=== PATIENT | male | born 1940 | race Hispanic/Latino ===

== ENCOUNTER 2020-05-25 10:21 | Inpatient (IN) | payer MEDICARE, OTHER ==
[~2020-05-25] VITALS: Ht 175.3 cm; Wt 79.4 kg
[2020-05-25] MEDS ORDERED: PIPER-TAZ 3.375 GM 50 ML IV STA (11:10)
[2020-05-25] MEDS ORDERED: SODIUM CHLORIDE 0.9% 1000ML 1,000 ML IV STA (11:10)
[2020-05-25 11:48] LABS: BASOPHILS % 0.3 % (0.0-1.0); EOSINOPHILS # (AUTO) 0.3 (0.0-0.4); EOSINOPHILS % 2.1 % (0.0-6.0); HEMATOCRIT 35.5 % (38.2-49.6); HEMOGLOBIN 11.1 g/dL (14.0-18.0); LYMPHOCYTES # (AUTO) 1.1 (1.0-3.2); MEAN CORPUSCULAR HEMOGLOBIN 27.1 pg (28-32); MEAN CORPUSCULAR HGB CONC 31.3 g/dL (31-35); MEAN CORPUSCULAR VOLUME 86.8 fL (81-99); MONOCYTES # (AUTO) 0.9 (0.2-0.8); MONOCYTES % 7.2 % (4.4-11.3); NEUTROPHILS # (AUTO) 9.8 (2.1-6.9); PLATELET COUNT 293 x10e3/uL (140-360); RED BLOOD COUNT 4.09 x10e6/uL (4.3-5.7); RED CELL DISTRIBUTION WIDTH 16.9 % (11.7-14.4)
--- NOTE | 2020-05-25 11:49 | Emergency Department Note ---
Past Medical/Family History Physician Review I have reviewed the patient's past medical and family history. Any updates have been documented here. Past Medical History Recent Fever: No Clinical Suspicion of Infectio: No New/Unexplained Change in Ment: No Family History Family history of heart diseas: No Review of Systems Review of Systems Constitutional: Reports no symptoms EENTM: Reports no symptoms Cardiovascular: Reports no symptoms Respiratory: Reports no symptoms Gastrointestinal: Reports no symptoms Genitourinary: Reports as per HPI, Reports other (Birmingham catheter) Musculoskeletal: Reports no symptoms Integumentary: Reports no symptoms Neurological: Reports no symptoms Psychological: Reports no symptoms Endocrine: Reports no symptoms Hematological/Lymphatic: Reports no symptoms Physical Exam Related Data Allergies: Coded Allergies: No Known Allergies (Unverified , 05/25/20) Triage Vital Signs Vital Signs Date Time Temp Pulse Resp B/P (MAP) Pulse Ox O2 Delivery O2 Flow Rate FiO2 05/25/20 10:29 98.7 85 20 141/84 95 Room Air Vital signs reviewed: Yes Physical Exam CONSTITUTIONAL Constitutional: Present well-developed, Present cachectic, Present ill appearin g HENT HENT: Present normocephalic, Present atraumatic, Present oropharynx clear/moist, Present nose normal HENT L/R: Present left ext ear normal, Present right ext ear normal EYES Eyes: Reports PERRL, Reports conjunctivae normal NECK Neck: Present ROM normal PULMONARY Pulmonary: Present effort normal, Present breath sounds normal CARDIOVASCULAR Cardiovascular: Present regular rhythm, Present heart sounds normal, Present normal rate GASTROINTESTINAL Abdominal: Present soft, Present nontender, Present bowel sounds normal GENITOURINARY Genitourinary: Present other (marked hypospadias Birmingham catheter insertion site); Absent penis normal SKIN Skin: Present warm, Present dry MUSCULOSKELETAL Musculoskeletal: Present other (contracted extremities) NEUROLOGICAL Neurological: Present alert PSYCHOLOGICAL Psychological: Present mood/affect normal, Present judgement normal Results Laboratory Result Diagram: 05/26/20 0503 05/26/20 0503 Lab results reviewed: Yes Assessment & Plan Medical Decision Making MDM 79-year-old male arrives to ED with a chronic indwelling Birmingham resulting hypospadias. Patient required hospital admission with revision to possible suprapubic catheter. Assessment & Plan Final Impression: (1) UTI (urinary tract infection) (2) Hypospadias Depart Disposition: ADMITTED Last Vital Signs Date Time Temp Pulse Resp B/P (MAP) Pulse Ox O2 Delivery O2 Flow Rate FiO2 05/25/20 10:29 98.7 85 20 141/84 95 Room Air Home Meds Reported Medications Acetaminophen With Codeine (TYLENOL WITH CODEINE #3 TABLET) 1 Each Tablet, 300 MG PO Q6H PRN for Mild Pain (1-3) or Fever>100.8, TAB 05/25/20 Trazodone Hcl (TRAZODONE HCL) 50 Mg Tablet, 50 MG PO HS, #30 TAB 05/25/20 Quetiapine Fumarate (QUETIAPINE FUMARATE) 25 Mg Tablet, MG PEG DAILY 05/25/20 Omeprazole (OMEPRAZOLE) 40 Mg Capsule.dr, 10 MG PEG BID 05/25/20 Levetiracetam (LEVETIRACETAM) 500 Mg Tablet, 1000 MG PEG BID 05/25/20 Finasteride (FINASTERIDE) 5 Mg Tablet, 5 MG PO DAILY, #30 TAB 05/25/20 Docusate Sodium (DOCUSATE SODIUM) 100 Mg Capsule, 100 MG PO BID PRN for CONSTIPATION, CAP 05/25/20 Benztropine Mesylate (BENZTROPINE MESYLATE) 1 Mg Tablet, 1 MG PEG BID 05/25/20 Aspirin (ASPIR 81) 81 Mg Tablet.dr, 81 MG PEG DAILY 05/25/20 Albuterol Sulf (ALBUTEROL SULFATE) 4 Mg Tab 05/25/20 Acetaminophen (ACETAMINOPHEN) 650 Mg Supp, 650 MG RC Q12H PRN for Mild Pain (1- 3) or Fever>100.8, SUPP 05/25/20 HISTORY & PHYSICAL HISTORY OF PRESENT ILLNESS HISTORY OF PRESENT ILLNESS This is a 79 year old male arrives to the ED with Birmingham catheter concerns, patient unable to provide history. HISTORY OF PAST ILLNESS PAST MEDICAL HISTORY: YES: CARDIOVASCULAR ACCIDENT, DEPRESSION, HIGH BLOOD PRESSURE MEDICATIONS MEDICATIONS Nurse's notes REVIEW OF SYSTEMS GENERAL: No: FEVER SKIN: YES: RASH COLTON BENITEZ DO May 25, 2020 11:49
[2020-05-25 12:06] LABS: BILIRUBIN,URINE NEGATIVE (NEGATIVE); CLARITY,URINE CLOUDY (CLEAR); COLOR,URINE YELLOW (YELLOW); KETONES,URINE NEGATIVE (NEGATIVE); LEUKOCYTE ESTERASE ,URINE LARGE (NEGATIVE); NITRITE,URINE NEGATIVE (NEGATIVE); PROTEIN,URINE DIPSTICK 1+ (NEGATIVE)
[2020-05-25 12:07] LABS: URINE UROBILINOGEN 1 mg/dL (0.2 - 1)
[2020-05-25 12:08] LABS: ALANINE AMINOTRANSFERASE 15 IU/L (0-55); ALBUMIN/GLOBULIN RATIO 0.6 (0.8-2.0); ALKALINE PHOSPHATASE 67 IU/L (40-150); ANION GAP 10.9 mmol/L (8-16); BLOOD UREA NITROGEN 18 mg/dL (7-26); BUN/CREATININE RATIO 20 (6-25); CALCIUM 8.8 mg/dL (8.4-10.2); CARBON DIOXIDE 27 mmol/L (22-29); CHLORIDE 103 mmol/L (98-107); CREATININE, SERUM 0.89 mg/dL (0.72-1.25); EST GLOMERULAR FILTRATION RATE > 60 ML/MIN (60-); GLUCOSE 102 mg/dL (74-118); POTASSIUM 3.9 mmol/L (3.5-5.1); SODIUM 137 mmol/L (136-145)
[2020-05-25 12:13] LABS: BACTERIA,URINE MANY /HPF; EPITHELIAL CELLS,URINE FEW /LPF; TRIPLE PHOSPHATE CRYSTAL,UR MODERATE (FEW); WBC,URINE (MAN) >50 /HPF (0-5)
[2020-05-25 13:56] VITALS: BP 131/77
[2020-05-25 14:03] VITALS: BP 131/77
--- NOTE | 2020-05-25 14:21 | NUR ---
patient received from ER via stretcher. see admit assess. sinus rhythm with BBB. patient contracted to all extremities. speech and WC eval ordered. left hip with old healing wound with dry and intact dressing in place. o2 3l. browning in place with large tear to penis. vitals sable with no distress.
[2020-05-25] MEDS ORDERED: SODIUM CHLORIDE 0.9% 50ML 50 ML ONE (14:23)
[2020-05-25] MEDS ORDERED: IOPAMIDOL 370 MG/ML 200 ML INFUS..BTL INJ ONE (14:23)
[2020-05-25] MEDS ORDERED: OMEPRAZOLE40 MG PEG (14:58)
[2020-05-25] MEDS ORDERED: ASPIR 8181 MG PEG (14:58)
[2020-05-25] MEDS ORDERED: LEVETIRACETAM500 MG PEG (14:58)
[2020-05-25] MEDS ORDERED: ALBUTEROL SULFAT4 MG (14:58)
[2020-05-25] MEDS ORDERED: ACETAMINOPHEN650 MG RC (14:58)
[2020-05-25] MEDS ORDERED: DOCUSATE SODIU100 MG PO (14:58)
[2020-05-25] MEDS ORDERED: TYLENOL WITH C1 EACH PO (14:58)
[2020-05-25] MEDS ORDERED: FINASTERIDE5 MG PO (14:58)
[2020-05-25] MEDS ORDERED: QUETIAPINE FUMA25 MG PEG (14:58)
[2020-05-25] MEDS ORDERED: BENZTROPINE MESY1 MG PEG (14:58)
[2020-05-25] MEDS ORDERED: TRAZODONE HCL50 MG PO (14:58)
--- NOTE | 2020-05-25 15:59 | Diagnostic Imaging Report ---
EXAM: CT Abdomen and Pelvis WITH intravenous contrast INDICATION: Scrotal cellulitis COMPARISON: None. TECHNIQUE: Abdomen and pelvis were scanned utilizing a multidetector helical scanner from the lung base to the pubic symphysis after administration of IV contrast. Coronal and sagittal reformations were obtained. Routine protocol was performed. Scan was performed during portal venous phase. IV CONTRAST: 100mL of Isovue 370 ORAL CONTRAST: None RADIATION DOSE: Total DLP: 846 mGy*cm Dose modulation, iterative reconstruction, and/or weight based adjustment of the mA/kV was utilized to reduce the radiation dose to as low as reasonably achievable. FINDINGS: LOWER THORAX: Bibasilar dependent subsegmental atelectasis. HEPATOBILIARY: No focal hepatic lesions. No biliary ductal dilatation. The gallbladder appears unremarkable. SPLEEN: No splenomegaly. PANCREAS: No focal masses or ductal dilatation. ADRENALS: No adrenal nodules. KIDNEYS/URETERS: 3.3 cm left midpole renal cyst. No hydronephrosis, renal calculi, or solid mass lesion PELVIC ORGANS/BLADDER: Birmingham catheter in the decompressed bladder. PERITONEUM / RETROPERITONEUM: No free air or fluid. LYMPH NODES: No lymphadenopathy. VESSELS: Moderate atherosclerotic calcifications of the nonaneurysmal abdominal aorta and major branches. GI TRACT: No abnormal bowel thickening. No bowel obstruction. Percutaneous gastrostomy tube terminates in the stomach. BONES AND SOFT TISSUES: Scrotal edema and skin thickening. No focal abscess or gas forming infection. No acute osseous injury. IMPRESSION: Scrotal edema and skin thickening in keeping with provided clinical history of cellulitis. No focal abscess or gas forming infection. Signed by: Aaron Tilley MD on 05/25/2020 3:55 PM
[2020-05-25 16:01] VITALS: BP 106/56
--- NOTE | 2020-05-25 16:34 | NUR ---
H&P cc: scrotal pain HPI: 79yoM, PCP??, developed scrotal pain. Pt also found to have UTI; Pt unable to provide any history- nonvocal. PMH: BPH, mood d/o, seizure d/o, dementia PSHx: unknown Allergies; see emr FH/SH; NH resident Meds; see MAR ROS: unobtainable V/S: revd PE tired appearing anicteric ns1s2 mod bs soft GROIN- not examined; pt not compliant with exam lower extremities contractures; Neuro: confused; not communicative Skin dry flat affect awake labs/meds revd A/P: 79yoM Scrotal cellulitis- iv abx UTI- IV abx BPH- finasteride Seizure d/o- keppra Prop: scd DIspo: Sigifredo Powell MD, PHD.
[2020-05-25] MEDS ORDERED: ACETAMINOPHEN 325 MG TAB PO PRN (16:45)
[2020-05-25] MEDS ORDERED: ONDANSETRON HCL INJ 2MG/ML 2ML 2 MG/ML VIAL IV PRN (16:45)
[2020-05-25] MEDS ORDERED: DOCUSATE SODIUM LIQD 100 MG/10 ML UDC PEG PRN (16:45)
[2020-05-25] MEDS ORDERED: ZOLPIDEM TARTRATE 5 MG TAB PO PRN (16:45)
[2020-05-25 20:00] VITALS: BP 120/49
--- NOTE | 2020-05-25 20:08 | NUR ---
paged dr nazia lee for new consult, awaiting call back.
--- NOTE | 2020-05-25 20:26 | NUR ---
answering service repaging dr nazia lee regarding new consult, still awaiting call back.
[2020-05-25] MEDS ORDERED: SODIUM CHLORIDE 0.9% 250ML 250 ML ONE (20:36)
[2020-05-25] MEDS: CLINDAMYCIN 300MG 50 ML IV SCH (20:38)
[2020-05-25] MEDS: TRAZODONE HCL 50 MG TAB PO SCH (20:50)
[2020-05-25] MEDS: LEVETIRACETAM ORAL SOLUTION 500 MG/5 ML SOLN PEG SCH (20:50)
[2020-05-25 21:00] VITALS: BP 120/49
[2020-05-25] MEDS: PIPER-TAZ 3.375 GM 50 ML IV SCH (21:42)
--- NOTE | 2020-05-25 22:30 | NUR ---
SPOKE TO DR MERCHANT REGARDING NEW CONSULT, NO NEW ORDERS.
[2020-05-26] VITALS (8 sets, daily range): BP systolic 111–143; BP diastolic 57–78
[2020-05-26] MEDS: CLINDAMYCIN 300MG 50 ML IV SCH ×3 (05:43→21:11)
[2020-05-26 05:47] LABS: BASOPHILS % 0.3 % (0.0-1.0); EOSINOPHILS # (AUTO) 0.2 (0.0-0.4); EOSINOPHILS % 2.2 % (0.0-6.0); HEMATOCRIT 34.3 % (38.2-49.6); HEMOGLOBIN 10.4 g/dL (14.0-18.0); LYMPHOCYTES # (AUTO) 1.3 (1.0-3.2); LYMPHOCYTES % 13.8 % (18.0-39.1); MEAN CORPUSCULAR HEMOGLOBIN 26.7 pg (28-32); MEAN CORPUSCULAR HGB CONC 30.3 g/dL (31-35); MEAN CORPUSCULAR VOLUME 88.2 fL (81-99); MONOCYTES # (AUTO) 0.7 (0.2-0.8); MONOCYTES % 7.5 % (4.4-11.3); NEUTROPHILS # (AUTO) 7.1 (2.1-6.9); NEUTROPHILS % 75.8 % (38.7-80.0); PLATELET COUNT 288 x10e3/uL (140-360); RED BLOOD COUNT 3.89 x10e6/uL (4.3-5.7); RED CELL DISTRIBUTION WIDTH 17.2 % (11.7-14.4)
[2020-05-26 05:55] LABS: ALANINE AMINOTRANSFERASE 14 IU/L (0-55); ALBUMIN 2.9 g/dL (3.5-5.0); ALBUMIN/GLOBULIN RATIO 0.6 (0.8-2.0); ALKALINE PHOSPHATASE 69 IU/L (40-150); ANION GAP 12.1 mmol/L (8-16); BLOOD UREA NITROGEN 15 mg/dL (7-26); BUN/CREATININE RATIO 16 (6-25); CALCIUM 8.6 mg/dL (8.4-10.2); CARBON DIOXIDE 26 mmol/L (22-29); CHLORIDE 106 mmol/L (98-107); CREATININE, SERUM 0.93 mg/dL (0.72-1.25); EST GLOMERULAR FILTRATION RATE > 60 ML/MIN (60-); GLUCOSE 90 mg/dL (74-118); POTASSIUM 4.1 mmol/L (3.5-5.1); SODIUM 140 mmol/L (136-145)
[2020-05-26] MEDS: PIPER-TAZ 3.375 GM 50 ML IV SCH ×3 (06:05→22:00)
--- NOTE | 2020-05-26 09:00 | NUR ---
The pt. is is non responsive verbally and at rounds he is awake.
--- NOTE | 2020-05-26 09:09 | NUR ---
Nutrition Intervention Note RD Recommendation(s) for Physician: - Recommend TF of Jevity 1.2 with goal rate of 55 ml/hr (1584 kcal and 73 gm protein) - Give 1 packet/day of Beneprotein via PEG - Water flushes and fluid management per MD Plan of Care: RD following, TF rec's, monitoring for tolerance and adequacy Nutrition reason for involvement: MD consult- TF rec's RD Assessment 05/26: 79 YOM admitted for UTI, evaluated today per MD consult for TF rec's. Pt with PEG in place on admit, no hx available per chart and unable to obtain hx from pt. TF rec's provided. Attempted to provide rec's to RN to initiate TF x 2. Will continue to monitor. Principal Problems/Diagnoses: hypospadias, UTI PMH: no H&P available GI: WDL, feeding tube on admit Skin: intact Labs: 05/26: Na 140, K 4.1, BUN 15, Cr 0.93, Gluc 93 Meds: abx, keppra, zofran, seroquel, colace Ht: 69 in Wt: 175 lb BMI: 25.8 kg/m2 IBW: 160 lb Malnutrition Evaluation (05/26/20) Unable to complete assessment at this time. Nutrition Prescription (Diet Order): NPO Estimated Nutritional Needs: Calories: 9667-8319 (18-22 kcal/kg/d) Weight used: CBW Protein: 79-119 (1-1.5 g/kg/d) Weight used: CBW Diet Adequacy: Not meeting calorie needs, Not meeting protein needs Tolerance: pending Diet Education Needs Assessment: Diet education not indicated. Nutrition Care Level: Moderate Nutrition Diagnosis: Inadequate energy and protein intake related to PEG on admit as evidenced by requiring EN. Goal: Patient will meet 75-100% of estimated needs by follow up Progress: N/A Interventions: Tube feeding - Composition, Rate, Route Monitoring/Evaluation: Total energy intake, Total protein intake, Formula/Solution, Weight change Signed: Rachel Dacosta RD, LD, [facility]
--- NOTE | 2020-05-26 09:20 | Consultation ---
DATE OF CONSULTATION: 05/26/2020 Urology Consultation REASON FOR CONSULTATION: Traumatic hypospadias. HISTORY OF PRESENT ILLNESS: Hernesto Toavr is a 79-year-old man, who is not able to really provide me history. The patient has some degree of aphasia. He apparently is a [facility] patient, who is bedbound and he has been managed with a [place] catheter. He has a traumatic hypospadias, which is very obviously longstanding. The patient apparently has had urinary tract infections as well. Currently, the patient has been admitted with a chief complaint of urinary tract infection and hypospadias, and urological consultation was sought for placement of suprapubic cystostomy. PAST MEDICAL AND SURGICAL HISTORY: 1. Dysphagia. 2. Contractures. 3. Gastroesophageal reflux disease. 4. Malnutrition. 5. Hyperlipidemia. 6. Alzheimer disease, unspecified. 7. Decubitus ulcers. 8. Schizophrenia. 9. Hypertension. 10. Anemia. 11. Status post gastrostomy tube placement. 12. Chronic urinary retention. 13. Depression. 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 15. Insomnia. 16. Aphasia. 17. Constipation. 18. BPH. 19. Vascular dementia. CURRENT MEDICATIONS: Please refer to MAR. SOCIAL HISTORY: The patient is a [facility] resident. It is unclear whether he has had history of tobacco abuse or alcohol abuse I am unsure, but the patient has prior employment history. The patient has been on aspirin as well as finasteride even though he is catheter-dependent. FAMILY HISTORY: Probably noncontributory to the urological problems. REVIEW OF SYSTEMS: It is believed to be consistent with above History of Present Illness and Past Medical History, otherwise believed to be negative for all systems. PHYSICAL EXAMINATION: GENERAL: Debilitated, aphasic man, sitting up in bed, contracted. No apparent distress. VITAL SIGNS: He is currently afebrile. Vital signs are currently stable. ABDOMEN: Soft and nondistended. There is a gastrostomy tube in place. The patient has severe contractures at the hips. He has severe traumatic hypospadias. He also has penile edema due to foreskin destruction as well as seems to be like a very chronic paraphimosis that is reducible though immediately recurs. It is difficult to discern the testes in the patient's contracted position. The Birmingham catheter is in place with yellow urine output. LABORATORY DATA: CT scan of the abdomen and pelvis was done. It revealed a 3.3 cm left mid pole cyst. Scrotal edema with thick skin. Birmingham catheter within a decompressed bladder. Urine and blood cultures are pending. White blood cell count is 9,420, was elevated at 12,160, hemoglobin is 10.4, and platelets are 288,000. The patient's creatinine is normal at 0.93. His urinalysis is significant for pyuria, microhematuria, crystalluria, and bacteriuria. Protein is also present. ASSESSMENT: 1. Complicated urinary tract infection. 2. Microscopic hematuria. 3. Proteinuria. 4. Leukocytosis. 5. Anemia. 6. Left renal cyst. 7. Chronic Birmingham catheter in situ. 8. Traumatic hypospadias. 9. Penile edema. PLAN: 1. Hold the aspirin. 2. Await urine culture and sensitivity, and adjust antibiotics accordingly. 3. The patient could benefit from a suprapubic cystostomy. Changing cystostomy tube to catheters in this patient is extremely difficult due to his terrible contractures that ideally should be managed with a tendon release or some other such procedure due to the fact that caring for this patient's genitalia is extremely challenging. I defer those decisions to the admitting physician. 4. Continue antibiotics and adjust them accordingly based on culture results. 5. This is not a simple patient from urological standpoint. Thank you very much for involving us in the care of your patient. We will be happy to follow along with you as well as an outpatient. MD LIV Sanchez/KATHE /[id number]
[2020-05-26] MEDS: QUETIAPINE FUMARATE 25 MG TAB PEG SCH (10:29)
[2020-05-26] MEDS: FINASTERIDE 5 MG TAB PO SCH (10:29)
[2020-05-26] MEDS: LEVETIRACETAM ORAL SOLUTION 500 MG/5 ML SOLN PEG SCH ×2 (10:29→21:11)
--- NOTE | 2020-05-26 13:10 | NUR ---
WOUND CARE CONSULT FOR 79 YO MALE HX OF UTI HYPOSPADIAS ELENA 9 ON CONSERVATIVE PUP STATUS AND INTERVENTIONS AND ALTERNATING PRESSURE MATTRESS LABS: WBC-9.42 HGB_10.4 GLUCOSE-90 SKIN ASSESSMENT COMPLETE PATIENT PRESENTS WITH RIGHT HIP UNSTAGEABLE ULCERATION 25% DULL PINK WOUND BASE 75 % YELLOW FIBRIN SLOUGH COVERING MEASURES 1CM X2CM RECOMMENDATIONS: NURSING TO CONTINUE TO MAINTAIN STRAIT PUP STATUS AND INTERVENTIONS AND ALTERNATING PRESSURE MATTRESS NURSING TO CONTINUE TO ASSIST PATIENT OUT OF BED FOR MEALS AND MUCH TOLERATED NURSING TO CONTINUE TO ASSIST PATIENT NEEDED WITH MEALS AND NUTRITIONAL SUPPLEMENTS TO ENSURE PROPER REQUIREMENTS FOR HEALING NURSING TO CONTINUE TO OFFLOAD FEET AND HEELS NEEDED WITH PILLOW SUSPENSION WHEN IN BED NURSING TO CLEAN RIGHT HIP UNSTAGEABLE ULCERATION WITH NORMAL SALINE DAILY AND APPLY SANTYL OINTMENT COVER WITH 4X4 AND TOP WITH ALLEVYN FOAM DRESSING Addendum: 05/26/20 at 1316 by Sea Wise RN Amended: Links added.
--- NOTE | 2020-05-26 14:00 | NUR ---
IM- progress note O/N see below ROS: unobtainable V/S: revd PE tired appearing anicteric ns1s2 mod bs soft GROIN- not examined; pt not compliant with exam lower extremities contractures; Neuro: confused; not communicative Skin dry flat affect awake labs/meds revd A/P: 79yoM Scrotal cellulitis- iv abx. UTI- IV abx BPH- finasteride Seizure d/o- keppra Prop: scd DIspo: 7-7 cont care; cont IV abx; Sigifredo Powell MD, PHD.
[2020-05-26] MEDS: TRAZODONE HCL 50 MG TAB PO SCH (21:11)
[2020-05-27] VITALS (8 sets, daily range): BP systolic 116–130; BP diastolic 45–68
[2020-05-27] MEDS: CLINDAMYCIN 300MG 50 ML IV SCH ×3 (05:40→21:46)
[2020-05-27] MEDS: PIPER-TAZ 3.375 GM 50 ML IV SCH ×3 (06:10→22:27)
[2020-05-27] MEDS: COLLAGENASE 5 GM TUBE TOP SCH (09:17)
[2020-05-27] MEDS: LEVETIRACETAM ORAL SOLUTION 500 MG/5 ML SOLN PEG SCH ×2 (09:17→21:46)
[2020-05-27] MEDS: FINASTERIDE 5 MG TAB PO SCH (09:17)
[2020-05-27] MEDS: QUETIAPINE FUMARATE 25 MG TAB PEG SCH (09:17)
--- NOTE | 2020-05-27 09:30 | NUR ---
The pt. is tolerating the tube feeding well without residual and is repositioned to the left side.
--- NOTE | 2020-05-27 12:47 | NUR ---
IM- progress note O/N see below ROS: unobtainable V/S: revd PE tired appearing anicteric ns1s2 mod bs soft GROIN- not examined; pt not compliant with exam lower extremities contractures; Neuro: confused; not communicative Skin dry flat affect awake labs/meds revd A/P: 79yoM Scrotal cellulitis- iv abx. UTI- IV abx BPH- finasteride Seizure d/o- keppra Prop: scd DIspo: 7-7 cont care; cont IV abx; 7-8 Enterococcus UTI- IV abx; f/u final cx; d/c planning for SNF; Sigifredo Powell MD, PHD.
--- NOTE | 2020-05-27 14:02 | NUR ---
FAXED CLINICALS TO RETURN PATIENT TO [facility], AFTER PIC PLACEMENT PT WILL RETURN, WAITING ON AUTH FOR SNF
--- NOTE | 2020-05-27 18:32 | Diagnostic Imaging Report ---
EXAMINATION: CHEST XRAY LINE PLACEMENT INDICATION: ^LINE PLACEMENT ^Y COMPARISON: None FINDINGS: AP view TUBES and LINES: Left PICC in place with tip projecting over cavoatrial junction. LUNGS: Low lung volumes. No definite focal consolidations. PLEURA: No pleural effusion or pneumothorax. HEART AND MEDIASTINUM: The cardiomediastinal silhouette is enlarged, accentuated by low lung volumes. BONES AND SOFT TISSUES: No acute osseous lesion. Linear metallic density projecting over right shoulder joint. Soft tissues are unremarkable. UPPER ABDOMEN: No free air under the diaphragm. IMPRESSION: Left PICC in place with tip projecting over cavoatrial junction. No visible pneumothorax. Signed by: Dr. Bacilio Boles MD on 05/27/2020 6:28 PM
[2020-05-27] MEDS: TRAZODONE HCL 50 MG TAB PO SCH (21:46)
[2020-05-28] VITALS (8 sets, daily range): BP systolic 101–124; BP diastolic 42–79
[2020-05-28] MEDS: CLINDAMYCIN 300MG 50 ML IV SCH (05:14)
[2020-05-28] MEDS: PIPER-TAZ 3.375 GM 50 ML IV SCH (06:37)
--- NOTE | 2020-05-28 06:46 | NUR ---
SPOKE TO DR MURRIETA ABOUT URINE CULTURE RESULT. NEW ORDER RECEIVED TO CONSULT ID AND ABX
--- NOTE | 2020-05-28 06:48 | NUR ---
CALLED AND LEFT MESSAGE TO DR PATRICK
[2020-05-28] MEDS: FINASTERIDE 5 MG TAB PO SCH (09:34)
[2020-05-28] MEDS: QUETIAPINE FUMARATE 25 MG TAB PEG SCH (09:34)
[2020-05-28] MEDS: LEVETIRACETAM ORAL SOLUTION 500 MG/5 ML SOLN PEG SCH ×2 (09:34→21:08)
[2020-05-28] MEDS: MEROPENEM 500MG/ NS 50ML 50 ML IV SCH ×2 (09:34→17:51)
--- NOTE | 2020-05-28 10:01 | Consultation ---
DATE OF CONSULTATION: 05/28/2020 Infectious Disease consultation REASON FOR CONSULTATION: ESBL and MDRO in urine. Thank you, Dr. Powell, for asking me to see this patient. HISTORY OF PRESENT ILLNESS: The patient is a 79-year-old man who was referred for ESBL and MDRO in urine. He is unable to give history due to severe dementia. The chart review showed that he was sent to the emergency department on 05/25/2020 for urinary tract infection and hypospadias. The patient has chronic indwelling [place] catheter placement. He has been evaluated by the Neurology service and suprapubic cystostomy is being planned. Urine culture later grew E coli, ESBL positive, Proteus mirabilis, and Enterococcus species. PAST MEDICAL HISTORY: Hypertension, hyperlipidemia, gastroesophageal reflux disease, BPH, dementia, and depression as well. PAST SURGICAL HISTORY: Gastrostomy tube placement. ALLERGIES: NO KNOWN DRUG ALLERGIES. MEDICATIONS: The current antibiotics are meropenem 500 mg IV piggyback q.6 hours and clindamycin 300 mg IV piggyback q.8 hours. He received Zosyn earlier. FAMILY HISTORY: Noncontributory. SOCIAL HISTORY: The patient is a shelter resident. No current alcohol or tobacco use. REVIEW OF SYSTEMS: Unable to obtain. PHYSICAL EXAMINATION: GENERAL: No acute distress. VITAL SIGNS: T-max 99.7, pulse rate 67, respiratory rate 20, blood pressure 110/79, and weight 175 pounds. HEENT: Normocephalic and atraumatic. There is no icterus or injection of conjunctivae. There is no ear or nasal discharge. There are dry lips, but the patient is not cooperative to oral and pharyngeal examination. NECK: Supple. There is no distention of external jugular veins. LUNGS: Good air entry bilaterally. HEART: Normal S1, S2. Regular. ABDOMEN: Soft and nontender. Suprapubic catheter exit site is clean. GENITOURINARY: There is an indwelling [place] catheter with severe hypospadias. No hematuria. EXTREMITIES: There is severe contracture of the limbs. There is no edema, clubbing, or cyanosis. SKIN: There is no acute erythema. SUPERVISORY IT SPECIALIST: The patient is awake, but makes incomprehensible speech. LABORATORY AND DIAGNOSTICS: On 05/26/2020, WBC 9420 down from 12,160, hemoglobin 10.4, hematocrit 34.3, platelet 288,000, neutrophils 75.8, lymphocytes 12.8, monocytes 7.5, eosinophils 2.2, and basophils 0.3. BUN 15, creatinine 0.9. Urinalysis was abnormal with pyuria. Urine culture later grew Escherichia coli ESBL positive, Proteus mirabilis and Enterococcus species. IMPRESSION: 1. Birmingham catheter related urinary tract infection due to multidrug resistant Escherichia coli, present on admission. 2. Hypospadias. PLAN: 1. Continue meropenem 500 mg IV piggyback q.6 hours. Stop clindamycin. 2. Await sensitivity of Enterococcus isolate. MD STEVAN Salvador/MODL /[id number]
[2020-05-28] MEDS: COLLAGENASE 5 GM TUBE TOP SCH (11:31)
--- NOTE | 2020-05-28 12:12 | NUR ---
IM- progress note O/N see below ROS: unobtainable V/S: revd PE tired appearing anicteric ns1s2 mod bs soft GROIN- not examined; pt not compliant with exam lower extremities contractures; Neuro: confused; not communicative Skin dry flat affect awake labs/meds revd A/P: 79yoM Scrotal cellulitis- iv abx. UTI- IV abx BPH- finasteride Seizure d/o- keppra Prop: scd DIspo: 7- cont care; cont IV abx; -8 Enterococcus UTI- IV abx; f/u final cx; d/c planning for SNF; - ESBL E.coli UTI and ENterococcus UTI- abx; ID eval; Sigifredo Powell MD, PHD.
--- NOTE | 2020-05-28 14:01 | NUR ---
ALF FACILITY DISCHARGE INFORMATION PATIENT HAS BEEN ACCEPTED TO: NAME: [facility] ADDRESS: [id number] [facility] ACCEPTING FSR: EUNICE CRENSHAW MD: IGBOKTEETEE ROOM: [id number] NURSE CALL REPORT TO: [phone] IMM SIGNED AND OBTAINED (if applicable): IMM THE FOLLOWING DOCUMENTS MUST ACCOMPANY PATIENT FOR TRANSFER: COPIED CHART:PACKET
--- NOTE | 2020-05-28 14:14 | NUR ---
called Dr. Powell for discharge orders to send patient back to SNF. Dr Powell stated that culture is still pending, will possibly discharge tomorrow.
--- NOTE | 2020-05-28 19:45 | NUR ---
PATIENT RECEIVED. PATIENT IS RESTING IN BED. RESP EVEN AND UNLABORED. NO ACUTE DISTRESS NOTED AT THIS TIME. TELE IN PLACE. HOB ELEVATED. TUBE FEEDING INFUSING AT 55 ML. NO RESIDUAL NOTED. PATIENT TOLERATED FEEDING WELL. CALL LIGHT WITH IN EASY REACH. INSTRUCTED PT TO USE CALL LIGHT FOR ALL THE NEEDS. BED IS LOW AND LOCKED. SIDE RAILS X2. BED ALARM IS ON. CONTINUE TO MONITOR CLOSELY
[2020-05-28] MEDS: TRAZODONE HCL 50 MG TAB PO SCH (21:08)
[2020-05-28] MEDS ORDERED: SODIUM CHLORIDE 0.9% 250ML 250 ML ONE (23:51)
[2020-05-29] VITALS: BP 113/72
[2020-05-29] MEDS: MEROPENEM 500MG/ NS 50ML 50 ML IV SCH ×2 (00:10→08:02)
[2020-05-29 04:00] VITALS: BP 116/67
--- NOTE | 2020-05-29 06:00 | NUR ---
D/C summary Principal Dx: ESBL E.coli UTI sen to mer[facility] Enterococcus UTI sen to [facility] Proteus UTI- sen to [facility] Scrotal cellulitis- iv abx. UTI- IV abx Secondary Dx: BPH- finasteride Seizure d/o- keppra Prop: scd DIspo: 05-26 cont care; cont IV abx; 05-27 Enterococcus UTI- IV abx; f/u final cx; d/c planning for SNF; 05-28 ESBL E.coli UTI and ENterococcus UTI- abx; ID eval; d/c to SNF on merrem stable f/u pcp 1 week d/c>35mins Sigifredo Powell MD, PHD.
[2020-05-29] MEDS: LEVETIRACETAM ORAL SOLUTION 500 MG/5 ML SOLN PEG SCH (08:02)
[2020-05-29] MEDS: QUETIAPINE FUMARATE 25 MG TAB PEG SCH (08:03)
[2020-05-29] MEDS: FINASTERIDE 5 MG TAB PO SCH (08:03)
[2020-05-29 08:24] VITALS: BP 108/76
[2020-05-29 10:25] VITALS: BP 108/76
[2020-05-29] MEDS ORDERED: ONDANSETRON HCL 4 MG ORAL DISINTEGRATING TAB PO PRN (10:45)
== END 2020-05-29 11:33 | DRG 699 ==
LOC: ER 11:24 → ERHOLD 12:37 → MED/SURG2 13:43
PROVIDERS: ADMIT Internal Medicine; ATTEND Internal Medicine
PROC: 02HV33Z Insertion of Infusion Device into Superior Vena Cava, Percutaneous Approach (ICD-10-PCS; principal; 2020-05-27)
DX: T83.518A Infection and inflammatory reaction due to other urinary catheter, initial encounter (principal); N39.0 Urinary tract infection, site not specified; Z16.12 Extended spectrum beta lactamase (ESBL) resistance; N49.2 Inflammatory disorders of scrotum; G40.909 Epilepsy, unspecified, not intractable, without status epilepticus; N40.0 Benign prostatic hyperplasia without lower urinary tract symptoms; M24.50 Contracture, unspecified joint; Z11.59 Encounter for screening for other viral diseases; B96.20 Unspecified Escherichia coli [E. coli] as the cause of diseases classified elsewhere; B95.2 Enterococcus as the cause of diseases classified elsewhere; F39 Unspecified mood [affective] disorder; L89.210 Pressure ulcer of right hip, unstageable; B96.4 Proteus (mirabilis) (morganii) as the cause of diseases classified elsewhere; Q54.9 Hypospadias, unspecified; F20.9 Schizophrenia, unspecified; G47.00 Insomnia, unspecified; F01.50 Vascular dementia, unspecified severity, without behavioral disturbance, psychotic disturbance, mood disturbance, and anxiety; G30.9 Alzheimer's disease, unspecified; F02.80 Dementia in other diseases classified elsewhere, unspecified severity, without behavioral disturbance, psychotic disturbance, mood disturbance, and anxiety; N28.1 Cyst of kidney, acquired; D64.9 Anemia, unspecified; R31.29 Other microscopic hematuria
CPT/HCPCS: 36415; 36569; 71045; 74177; 80053; 81001; 82948; 83605; 85025; 87040; 87086; 87186; 87635; 99285; J2543; J7030; J7050; Q9967